=== PATIENT | female | born 1990 | race American Indian/Alaskan Native ===

== ENCOUNTER 2017-12-15 15:26 | Emergency (ER) | payer SELFPAY ==
[2017-12-15 15:26] VITALS: BMI 20.9
[2017-12-15 15:35] VITALS: BP 126/76; PULSE 80; RESP 16; TEMP 98.7; O2SAT 98
--- NOTE | 2017-12-15 16:06 | C.PDOC ---
History Of Present Illness Patient is a 27 y/o female who presents to the ED by police for medical clearance to go to nursing home. Patient has no physical complaints at this time. Time Seen by Provider: 12/15/17 15:49 Chief Complaint (Nursing): Medical Clearance History Per: Patient History/Exam Limitations: no limitations Severity: None Recent travel outside of the [place]: No Past Medical History Reviewed: Historical Data, Nursing Documentation, Vital Signs Vital Signs: Last Vital Signs Temp 98.7 F 12/15/17 15:33 Pulse 80 12/15/17 15:33 Resp 16 12/15/17 15:33 BP 126/76 12/15/17 15:33 Pulse Ox 98 12/15/17 16:14 - Medical History PMH: Asthma, Bronchitis Surgical History: No Surg Hx Family History: States: No Known Family Hx - Social History Hx Tobacco Use: Yes (light smoker) Hx Alcohol Use: Yes Hx Substance Use: No - Immunization History Hx Tetanus Toxoid Vaccination: No Hx Influenza Vaccination: No Hx Pneumococcal Vaccination: No Review Of Systems Except As Marked, All Systems Reviewed And Found Negative. Constitutional: Negative for: Fever, Chills Cardiovascular: Negative for: Chest Pain Respiratory: Negative for: Shortness of Breath Gastrointestinal: Negative for: Abdominal Pain Physical Exam - Physical Exam Appears: Well, Non-toxic, No Acute Distress Skin: Normal Color, Warm, Dry Head: Atraumatic, Normacephalic Eye(s): bilateral: Normal Inspection Oral Mucosa: Moist Neck: Normal ROM, Supple Chest: Symmetrical Cardiovascular: Rhythm Regular, No Murmur Respiratory: Normal Breath Sounds, No Rales, No Rhonchi, No Wheezing Gastrointestinal/Abdominal: Soft, No Tenderness Back: Normal Inspection Extremity: Normal ROM, No Tenderness, No Swelling Neurological/Psych: Oriented x3, Other (no focal deficits) Gait: Steady ED Course And Treatment O2 Sat by Pulse Oximetry: 98 (on RA) Pulse Ox Interpretation: Normal Progress Note: The patient with normal exam and is medically cleared Medical Decision Making Medical Decision Making: Patient is medically cleared for incarceration. Disposition - Disposition Disposition: HOME/ ROUTINE Disposition Time: 16:00 Condition: GOOD Forms: [facility] (Maldivian) - Clinical Impression Clinical Impression: Medical assessment - Scribe Statement The provider has reviewed the documentation as recorded by the Scribe Emilee Lara All medical record entries made by the Scribe were at my direction and personally dictated by me. I have reviewed the chart and agree that the record accurately reflects my personal performance of the history, physical exam, medical decision making, and the department course for this patient. I have also personally directed, reviewed, and agree with the discharge instructions and disposition.
== END 2017-12-15 15:55 ==
LOC: C.ER 15:26
DX: Z02.89 Encounter for other administrative examinations (principal)

== ENCOUNTER 2018-02-27 13:29 | Emergency (ER) | payer MEDICAID, OTHER ==
[2018-02-27 13:30] VITALS: BMI 20.9
[2018-02-27 13:41] VITALS: BP 122/78; PULSE 83; RESP 18; TEMP 98.6; O2SAT 97
[2018-02-27 14:08] LABS: HCG,QUALITATIVE URINE NEGATIVE (NEGATIVE)
[2018-02-27 14:14] LABS: SQUAMOUS EPITHIAL 3 /hpf (0-5); URINE BACTERIA RARE (<OCC); URINE BILIRUBIN NEGATIVE (NEGATIVE); URINE BLOOD 3+ (NEGATIVE); URINE CLARITY Hazy (Clear); URINE COLOR Red (YELLOW); URINE GLUCOSE (UA) NORMAL (Normal); URINE LEUKOCYTE ESTERASE 3+ Leu/uL (Negative); URINE PROTEIN 2+ mg/dL (NEGATIVE); URINE UROBILINOGEN NORMAL mg/dL (0.2-1.0); WBC CLUMPS OCC /hpf
--- NOTE | 2018-02-27 15:20 | C.PDOC ---
History Of Present Illness 27 y/o female presents to the ER complaining of dysuria and frequency which began in the morning today. 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 Patient feels pressure in her lower abdomen. Patient denies having any fever, flank pain, nausea and vomiting. Time Seen by Provider: 02/27/18 13:37 Chief Complaint (Nursing): Female Genitourinary History Per: Patient History/Exam Limitations: no limitations Onset/Duration Of Symptoms: Hrs Current Symptoms Are (Timing): Still Present Severity: Moderate Quality Of Discomfort: Pressure Past Medical History Reviewed: Historical Data, Nursing Documentation, Vital Signs Vital Signs: Last Vital Signs Temp 98.6 F 02/27/18 13:36 Pulse 83 02/27/18 13:36 Resp 18 02/27/18 13:36 BP 122/78 02/27/18 13:36 Pulse Ox 97 02/27/18 15:26 - Medical History PMH: Asthma, Bronchitis Surgical History: No Surg Hx Family History: States: No Known Family Hx - Social History Hx Tobacco Use: Yes (light smoker) Hx Alcohol Use: Yes Hx Substance Use: No - Immunization History Hx Tetanus Toxoid Vaccination: No Hx Influenza Vaccination: No Hx Pneumococcal Vaccination: No Review Of Systems Except As Marked, All Systems Reviewed And Found Negative. Constitutional: Negative for: Fever, Chills Gastrointestinal: Negative for: Nausea, Vomiting Genitourinary: Positive for: Dysuria, Frequency, Hematuria Physical Exam - Physical Exam Appears: Non-toxic, No Acute Distress Skin: Normal Color, Warm Head: Atraumatic, Normacephalic Eye(s): bilateral: Normal Inspection Nose: Normal Oral Mucosa: Moist Neck: Supple Chest: Symmetrical Cardiovascular: Rhythm Regular Respiratory: Normal Breath Sounds, No Rales, No Rhonchi, No Wheezing Gastrointestinal/Abdominal: Soft, Tenderness (mild suprapubic tenderness) Neurological/Psych: Oriented x3, Normal Speech ED Course And Treatment O2 Sat by Pulse Oximetry: 97 (RA) Pulse Ox Interpretation: Normal Medical Decision Making Medical Decision Making: Plan: --HCG Test --UA Updates: UA shows signs of UTI. Patient has been given Cipro Po and Pyridium PO. Patient has been discharged with prescription for Cipro and instructed to follow up with PMD. Disposition Counseled Patient/Family Regarding: Diagnosis, Need For Followup, Rx Given - Disposition Referrals: [facility] [Outside] [facility] [Outside] Disposition: HOME/ ROUTINE Disposition Time: 15:15 Condition: GOOD Additional Instructions: Take antibiotic twice daily and be sure to finish taking all of antibiotic. Drink plenty of fluids. Follow up with your primary medical doctor or clinic for further evaluation Prescriptions: Ciprofloxacin [Cipro] 1 tab PO BID #10 tab Instructions: Urinary Tract Infections in Adults Forms: [employer] (Mohawk) - POA Present On Arrival: None - Clinical Impression Clinical Impression: UTI (urinary tract infection) - PA / SUPERVISOR METALIZING / Resident Statement MD/DO has reviewed & agrees with the documentation as recorded. - Scribe Statement The provider has reviewed the documentation as recorded by the Brookeibrichard Hidalgo Provider Attestation All medical record entries made by the Brookeibe were at my direction and personally dictated by me. I have reviewed the chart and agree that the record accurately reflects my personal performance of the history, physical exam, medical decision making, and the department course for this patient. I have also personally directed, reviewed, and agree with the discharge instructions and disposition.
== END 2018-02-27 15:04 | disposition home or self-care (01) ==
LOC: C.ER 13:29
DX: N39.0 Urinary tract infection, site not specified (principal)

== ENCOUNTER 2018-10-05 12:56 | Emergency (ER) | payer MEDICAID ==
[2018-10-05 12:56] VITALS: BMI 20.9
--- NOTE | 2018-10-05 14:03 | RAD ---
Right knee three views HISTORY: Pain. COMPARISON: None available. FINDINGS: No evidence of acute displaced fracture or dislocation. No significant suprapatellar joint effusion. Impression: Negative acute. If pain persists, consider MRI.
--- NOTE | 2018-10-05 14:05 | C.PDOC ---
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 Reports she was walking when she suddenly heard a pop in her knee and was unable to keep ambulating due to the excruciating pain. Admits prior history of right knee pain due to a ligament injury. Denies previous surgeries to Right knee, weakness, deformity to Right leg. Time Seen by Provider: 10/05/18 13:11 Chief Complaint (Nursing): Lower Extremity Problem/Injury History Per: Patient History/Exam Limitations: no limitations Onset/Duration Of Symptoms: Hrs Current Symptoms Are (Timing): Still Present - Knee Description Of Injury: Other (walking ) Currently Unable To: Bear Weight, Straighten, Bend Or Move Past Medical History Reviewed: Historical Data, Nursing Documentation, Vital Signs Vital Signs: Last Vital Signs Temp 98.7 F 10/05/18 13:09 Pulse 80 10/05/18 13:09 Resp 18 10/05/18 13:09 BP 124/79 10/05/18 13:09 Pulse Ox 98 10/05/18 13:09 - Medical History PMH: Asthma, Bronchitis Surgical History: No Surg Hx Family History: States: No Known Family Hx - Social History Hx Tobacco Use: Yes (light smoker) Hx Alcohol Use: Yes Hx Substance Use: Yes - Immunization History Hx Tetanus Toxoid Vaccination: No Hx Influenza Vaccination: No Hx Pneumococcal Vaccination: No Review Of Systems Musculoskeletal: Positive for: Other (right knee pain ) Neurological: Negative for: Weakness, Numbness Physical Exam - Physical Exam Appears: Non-toxic, No Acute Distress Skin: Warm, Dry, No Rash, No Ecchymosis Head: Normacephalic Eye(s): bilateral: PERRL Extremity: Normal ROM (mild discomofrt to Right knee flexion due to pain, no neurovascular deficits distall to injury.), Tenderness (diffused tenderness to the anterior aspect of right knee), No Calf Tenderness, Capillary Refill (less than 2 sec to right knee), No Deformity, No Swelling Pulses: Right Dorsalis Pedis: Normal DTR: Knee (R): 2+ Neurological/Psych: Oriented x3, Normal Speech, Normal Sensation, Normal Reflexes ED Course And Treatment O2 Sat by Pulse Oximetry: 98 (RA) Pulse Ox Interpretation: Normal - Other Rad Right knee X-Ray: Interpreted by Me, Viewed By Me Interpretation: (-)a mamadou fx or dislocation Progress Note: Patient given Motrin 600mg PO. XR of right knee ordered. On re- eval, pt is afebrile, hemodynamicaly stable. Right knee; mild tenderness anterior aspect Right knee, no deformity. FAROM, no neurovascuar deficits. Imaging rview (-) acute fx or dislocation. Knee brace applied to Right knee, crutches with insturction provided. Pt advised and rf. to f/u with Ortho in 2-3 days for re-eavl. return if any new changes. Disposition Counseled Patient/Family Regarding: Studies Performed, Diagnosis, Need For Followup, Rx Given - Disposition Referrals: [facility] [Outside] Crystal Estrella MD [Staff Provider] - Disposition: HOME/ ROUTINE Disposition Time: 14:00 Condition: STABLE Additional Instructions: RICE-rest, ice, compression with knee brace, elevation Avoid prolong walking follow up with PMD, orthopedist in 2-3 days for re-evaluation. return if any new changes. Prescriptions: Ibuprofen [Motrin Tab] 600 mg PO BID #20 tab Instructions: Knee Sprain (DC) Forms: [employer] (East Timorese) - Clinical Impression Clinical Impression: Knee sprain - PA / CORPORATE LIBRARIAN / Resident Statement MD/DO has reviewed & agrees with the documentation as recorded. - Scribe Statement The provider has reviewed the documentation as recorded by the Scribrichard Cordero All medical record entries made by the Scribe were at my direction and personally dictated by me. I have reviewed the chart and agree that the record accurately reflects my personal performance of the history, physical exam, medical decision making, and the department course for this patient. I have also personally directed, reviewed, and agree with the discharge instructions and disposition.
--- NOTE | 2018-10-05 14:13 | C.PDOC ---
Time Seen by Provider: 10/05/18 13:11 Chief Complaint (Nursing): Lower Extremity Problem/Injury Past Medical History Vital Signs: Last Vital Signs Temp 98.7 F 10/05/18 13:09 Pulse 80 10/05/18 13:09 Resp 18 10/05/18 13:09 BP 124/79 10/05/18 13:09 Pulse Ox 98 10/05/18 13:09 - Medical History PMH: Asthma, Bronchitis Family History: States: Unknown Family Hx - Social History Hx Tobacco Use: Yes (light smoker) Hx Alcohol Use: Yes Hx Substance Use: Yes - Immunization History Hx Tetanus Toxoid Vaccination: No Hx Influenza Vaccination: No Hx Pneumococcal Vaccination: No ED Course And Treatment O2 Sat by Pulse Oximetry: 98 Disposition Counseled Patient/Family Regarding: Studies Performed, Diagnosis, Need For Followup, Rx Given - Disposition Referrals: [facility] [Outside] Crystal Estrella MD [Staff Provider] - Disposition: HOME/ ROUTINE Disposition Time: 13:59 Condition: STABLE Additional Instructions: RICE-rest, ice, compression with knee brace, elevation light duty Instructions: Knee Sprain (DC)
[2018-10-05 14:31] VITALS: BP 114/72; PULSE 74; RESP 16; TEMP 98
[2018-10-05 17:39] VITALS: O2SAT 98
== END 2018-10-05 14:40 | disposition home or self-care (01) ==
LOC: C.ER 12:56
DX: S83.91XA Sprain of unspecified site of right knee, initial encounter (principal); X58.XXXA Exposure to other specified factors, initial encounter; Y93.01 Activity, walking, marching and hiking